=== PATIENT | female | born 1970 | race Two or more races ===

== ENCOUNTER → 2022-02-08 10:06 | Outpatient (BNVA) | payer OTHER, SELFPAY | PROVIDERS: PCP Internal Medicine; Visit Provider Student in an Organized Health Care Education/Training Program | DX: M77.11 Lateral epicondylitis, right elbow (principal); M70.61 Trochanteric bursitis, right hip; M70.62 Trochanteric bursitis, left hip; M17.0 Bilateral primary osteoarthritis of knee | CPT/HCPCS: 20610; J3300 ==

== ENCOUNTER 2025-04-18 07:16 | Day surgery (SDC) | payer OTHER, SELFPAY ==
[2025-04-12 13:50] VITALS: BMI 29.2
--- NOTE | ~2025-04-18 | FL_ITS ---
EXAMINATION: FLUOROSCOPY GUIDANCE FOR NEEDLE PLACEMENT CLINICAL INFORMATION: Procedural guidance COMPARISON: None TECHNIQUE: Intraoperative fluoroscopy guidance for pain management procedure. FINDINGS: 2 submitted images demonstrate needle placement and contrast injection over the left C4 neuroforamen. FLUOROSCOPY TIME: 12 seconds DOSE AREA PRODUCT: 0.342 Gy-cm2 FL/FL guidance in OR IMPRESSION: Fluoroscopy guidance for pain management procedure. Electronically signed by: Karly Martin MD 04/18/2025 04:31 PM [facility] [place]
[2025-04-18 07:27] VITALS: BMI 29.4
[2025-04-18] MEDS: Lactated Ringers 1,000 ML 80 ML IVCONT (07:42)
[2025-04-18 07:47] VITALS: BP 106/55; PULSE 89; RESP 18; TEMP 37; O2SAT 95
--- NOTE | 2025-04-18 08:06 | HO.ANESPROP2 ---
[facility] Active Problems Active Problems: All Active Problems Cervical radiculopathy (Acute) Trochanteric bursitis of right hip (Acute) Trochanteric bursitis of both hips (Acute) Bilateral primary osteoarthritis of knee (Acute) Right tennis elbow (Acute) Past Medical History Medical History Menopause Herniated cervical disc Stress incontinence Arthritis Migraines Asthma Allergic rhinitis Family History Family History Mother Migraines Arthritis Father Diabetes Daughter ADHD Bipolar 1 disorder Paternal Aunt Diabetes Maternal Uncle Colon cancer Sister Fibromyalgia Family history of problems with anesthesia: No Surgical History Surgical History Hx of eye surgery Hx of tubal ligation H/O right breast biopsy History of Problems with Anesthesia: No Social History Social History Household Members: Family Are you a primary workforce investment act career manager to a significant other at home: No Do you presently have visiting nurse or other home services: No Alcohol intake: current Alcohol intake frequency: a few times a month Alcohol type: wine Patient Tobacco Use Status: Never used Tobacco Have you been hit, kicked, punched, or otherwise hurt by someone within the past year? If so, by whom?: No Are you DNR?: No Advance Directives: No Advance Directives Information Provided: Yes FDLMP: over one year Current occupational status: employed Current occupation: Paraprofessional, NURSING CONSULTANT Meds Allergies Allergy/AdvReac Type Severity Reaction Status Date / Time Seasonal Allergies Allergy Intermediate Itchy Eyes Verified 04/18/25 07:36 amoxicillin (From Augmentin) AdvReac Severe Abdominal Verified 04/18/25 07:36 Pain, Diarrhea clavulanic acid (From AdvReac Severe Abdominal Verified 04/18/25 07:36 Augmentin) Pain, Diarrhea Active Medications: Current Medications Lactated Ringer's (Lr) 1,000 mls @ 80 mls/hr IVCONT .[id number] TOMAS Last Admin: 04/18/25 07:42 Dose: 80 mls/hr Home Medications ?Medication ?Instructions ?Recorded ?Confirmed ?Last Taken ?Type ibuprofen 800 mg tablet 800 mg PO Q8H PRN Shortness Of 02/08/22 04/12/25 Unknown History Breath Or Wheezing rizatriptan 10 mg tablet 10 mg PO Q2-4H PRN Migraine 02/08/22 04/12/25 Unknown History Headache albuterol sulfate 2.5 mg/3 mL 2.5 mg inhalation Q6H PRN wheezing 04/12/25 04/12/25 Unknown History (0.083 %) solution for nebulization albuterol sulfate 90 mcg/actuation 2 puff inhalation Q6H PRN 04/12/25 04/12/25 Unknown History aerosol inhaler (Ventolin HFA) Shortness Of Breath Or Wheezing cyclobenzaprine 10 mg tablet 5 mg PO TID PRN Muscle Spasm 04/12/25 04/12/25 Unknown History fluticasone 500 mcg-salmeterol 50 1 inh inhalation BID 04/12/25 04/12/25 04/18/25 History mcg/dose blistr powdr for inhalation (Wixela Inhub) fluticasone propionate 50 2 spray intranasal DAILY 04/12/25 04/12/25 Unknown History mcg/actuation nasal spray,suspension Exam Exam Date and Time: 04/18/25 Height,Weight and Vital Signs: Height 5 ft 5.5 in Weight 81.5 kg Last Vital Signs Temp 98.6 F 04/18/25 07:47 Pulse 89 04/18/25 07:47 Resp 18 04/18/25 07:47 BP 106/55 L 04/18/25 07:47 Pulse Ox 95 04/18/25 07:47 O2 Del Method Room Air 04/18/25 07:47 Airway Mallampati Class: I TM Dist: >3cm Neck ROM: Full Heart: rrr Lungs: ctab Assessment and Plan Assessment Anesthesia Assessment: Anesthesia Plan Discussed and Chart Reviewed Final Anesthetic Review Family History of Problems with Anesthesia: No History of Problems with Anesthesia: No NPO: Yes ASA Class: II Final Preanesthetic Review: No Changes in Pt Med Stat, Meds/Allgs Chart Reviewed, Consent Obtained/Reviewed and Anes Risks/Benef Reviewed Patient Risk: Low Procedure Risk: Low Anesthetic Plan Anesthetic Plan: MAC: Disposition: Standard PACU
--- NOTE | 2025-04-18 08:13 | MHC.SHP ---
Pre-Procedural Eval Section A - 24 Hr Update-Section A only Date of Service: 04/18/25 Section B - Complete if H&P > 30 days Chief Complaint: Radiculopathy, cervical region Details of Present Illness: Chronic left cervical radiculitis Relevant Family History (Specify if Yes): No Relevant Social History: None Present Medications: see Short Stay Collaborative assessment Medical History: No relevant PMH History of Previous Operations: No relevant previous surgery Allergies: Allergies Allergy/AdvReac Type Severity Reaction Status Date / Time Seasonal Allergies Allergy Intermediate Itchy Eyes Verified 04/18/25 07:36 amoxicillin (From Augmentin) AdvReac Severe Abdominal Verified 04/18/25 07:36 Pain, Diarrhea clavulanic acid (From AdvReac Severe Abdominal Verified 04/18/25 07:36 Augmentin) Pain, Diarrhea Review of Systems Sugical H&P ROS: Negative: Constitution, Cardiovascular, Respiratory, Neurological, Psychiatric, Hem-Onc, Allergic/Immunologic, Gastrointestinal, Genitourinary, Musculoskeletal, Integumentary, Endocrine and Eyes/Ears/Nose/Throat Exam Surgical H&P Exam: Normal: HEENT, Normal: Heart, Normal: Lungs, Normal: Extremities, Normal: Abdomen, Normal: Skin and Normal: Neurological Plan Diagnosis/Plan: Unchanged I have reviewed the history and physical and performed a pertinent physical examination on my patient. No changes have occurred unless specified. Time Spent With Patient Time: Total time managing care of this patient today ____ minutes.
--- NOTE | 2025-04-18 08:15 | P.OP_ITS ---
Operative Note Operative Note Date of Service: 04/18/25 Narrative: Procedure performed: Left C4 TFESI Preop diagnosis: Cervical radiculitis Postop diagnosis: The same Anesthesia: Mac After informed consent was obtained patient was brought into the procedure room and placed in supine position on the procedure table. Skin over left side of the neck was prepped and draped in the usual sterile manner. C4 neural foramen was visualized utilizing fluoroscopy. 3.5 in 25 gauge spinal needle was introduced percutaneously and advanced toward the posterior pillar at the indicated level at about 1 o'clock position. Once contact with the bone was reached, needle was then redirected into the outer 3rd of the neural foramen as was demonstrated on AP and lateral fluoroscopic images. Needle placement was verified utilizing 1 cc of Omnipaque contrast solution. Additional 1 cc of so lution was injected under live fluoroscopy. Excellent flow through the neural foramen without evidence of vascular uptake was visualized. 1 cc of 1% preservative-free lidocaine was injected and patient was observed for 60 seconds. 20 mg of preservative-free dexamethasone was injected after negative aspiration for blood and cerebrospinal fluid. Patient tolerated procedure very well without complications. Radiation exposure was documented in the chart.
[2025-04-18 09:02] VITALS: BP 95/49; PULSE 73; RESP 12; TEMP 36.2; O2SAT 94
[2025-04-18 09:15] VITALS: BP 101/52; PULSE 69; RESP 16; TEMP 36.2; O2SAT 97
== END 2025-04-18 09:50 | disposition home or self-care (01) ==
PROVIDERS: PCP Internal Medicine; Visit Provider Physical Medicine & Rehabilitation
PROC: (CPT 64479; principal; 2025-04-18 08:30)
DX: M54.12 Radiculopathy, cervical region (principal); M75.42 Impingement syndrome of left shoulder; M19.90 Unspecified osteoarthritis, unspecified site; M54.2 Cervicalgia; J45.909 Unspecified asthma, uncomplicated; Z79.1 Long term (current) use of non-steroidal anti-inflammatories (NSAID); Z79.899 Other long term (current) drug therapy; Z98.890 Other specified postprocedural states
CPT/HCPCS: 64479; J1100; J2003; J2250; J2371; J2704; J3010; Q9967

== ENCOUNTER → 2025-04-18 07:16 | Outpatient (BNV) | payer OTHER, SELFPAY | PROVIDERS: PCP Internal Medicine; Visit Provider Physical Medicine & Rehabilitation | DX: M54.12 Radiculopathy, cervical region (principal) | CPT/HCPCS: 64479 ==